=== PATIENT | female | born 1975 | race Caucasian/White ===

== ENCOUNTER 2022-03-02 20:40 | Emergency (ER) | payer OTHER, MEDICAID ==
[~2022-03-02] VITALS: Ht 165.1 cm; Wt 104.3 kg
[2022-03-02 21:15] LABS: Basophils # (auto) 0.1 10 ^3/uL (0-0.2); Eosinophils # (auto) 0.1 10 ^3/uL (0-0.8); Lymphocytes # (auto) 1.2 10 ^3/uL (0.4-5.4); Neutrophils # (auto) 4.7 10 ^3/uL (1.6-8.6); Neutrophils % (auto) 70.7 % (37.0-80.0); Nucleated Red Blood Cells % 0.1 %; White Blood Cell 6.7 10^3/uL (4.4-10.8)
[2022-03-02 21:16] LABS: Basophils % (auto) 1.2 % (0.0-2.0); Hematocrit 41.1 % (36.0-46.0); Hemoglobin 14.1 g/dL (12.2-16.2); Lymphocytes % (auto) 17.9 % (10.0-50.0); Mean Corpuscular Hemoglobin 37.8 pg (28.0-32.0); Mean Corpuscular Hgb Conc. 34.2 g/dL (32.0-36.0); Mean Corpuscular Volume 110.4 fL (80.0-100.0); Monocytes # (auto) 0.5 10 ^3/uL (0-1.3); Monocytes % (auto) 8.2 % (0.0-12.0); Red Blood Cells 3.72 10^6/uL (4.0-5.20); Red Cell Distribution Width 14.2 % (11.8-14.3)
[2022-03-02 21:40] LABS: Albumin 3.1 g/dL (3.4-5.0); BUN/Creatinine Ratio 7.6; Calcium 9.1 mg/dL (8.5-10.1); Potassium 3.4 mmol/L (3.5-5.1)
[2022-03-02 21:42] LABS: Bilirubin, Total 0.8 mg/dL (0.2-1.0); Total Protein 7.4 g/dL (6.4-8.2)
[2022-03-03 03:03] LABS: Urine Bacteria NONE SEEN /hpf (None Seen); Urine Blood Negative /uL (Negative); Urine Budding Yeast OCCASIONAL /hpf (None Seen); Urine Mucus MODERATE (None Seen); Urine Specific Gravity 1.016 (1.001-1.035); Urine WBC 57 /hpf (0 - 5)
[2022-03-03 06:00] VITALS: BP 110/75
[2022-03-03] MEDS ORDERED: NITR-87 PO (07:33)
[2022-03-03] MEDS ORDERED: POTASSIUM EFFERVESENT TAB 25 MEQ PO ONE (07:45)
[2022-03-03] MEDS ORDERED: cefTRIAXone W LIDOCAINE 1 GM IM IM ONE (07:45)
[2022-03-03] MEDS ORDERED: HYDROcodone-ACET 10/325MG TAB PO ONE (07:45)
[2022-03-03] MEDS ORDERED: ONDANSETRON ODT 4 MG TAB PO ONE (10:00)
== END 2022-03-03 10:13 | disposition home or self-care (01) ==
LOC: EDBD 20:40 → ER 20:40
DX: E87.6 Hypokalemia (principal); E44.1 Mild protein-calorie malnutrition; N39.0 Urinary tract infection, site not specified; R74.8 Abnormal levels of other serum enzymes; F17.210 Nicotine dependence, cigarettes, uncomplicated; Z68.38 Body mass index [BMI] 38.0-38.9, adult; Z90.49 Acquired absence of other specified parts of digestive tract; Z88.6 Allergy status to analgesic agent
CPT/HCPCS: 36415; 74176; 80053; 81001; 83690; 85025; 93005; 96372; 99285; J0696; Q0162

== ENCOUNTER 2022-03-07 11:23 | Inpatient (IN) | payer OTHER, MEDICAID ==
[~2022-03-07] VITALS: Ht 167.6 cm; Wt 102.3 kg
[~2022-03-07 11:23] MED LIST: NITR-87 PO
[2022-03-07] MEDS ORDERED: cefTRIAXone 1GM/50ML D5W 50 ML IV ONE (11:30)
[2022-03-07] MEDS ORDERED: SODIUM CHLORIDE 0.9% 1,000 ML IV ONE (11:30)
[2022-03-07 12:21] LABS: Eosinophils # (auto) 0.1 10 ^3/uL (0-0.8); Eosinophils % (auto) 0.6 % (0.0-7.0); Monocytes # (auto) 0.9 10 ^3/uL (0-1.3); Red Blood Cells 3.86 10^6/uL (4.0-5.20)
[2022-03-07 12:22] LABS: Basophils # (auto) 0.1 10 ^3/uL (0-0.2); Basophils % (auto) 0.6 % (0.0-2.0); Hematocrit 42.3 % (36.0-46.0); Hemoglobin 14.6 g/dL (12.2-16.2); Lymphocytes % (auto) 9.3 % (10.0-50.0); Mean Corpuscular Hemoglobin 37.8 pg (28.0-32.0); Mean Corpuscular Hgb Conc. 34.6 g/dL (32.0-36.0); Mean Corpuscular Volume 109.4 fL (80.0-100.0); Neutrophils # (auto) 8.5 10 ^3/uL (1.6-8.6); Neutrophils % (auto) 80.5 % (37.0-80.0); Nucleated Red Blood Cells % 0.1 %; Red Cell Distribution Width 13.9 % (11.8-14.3); White Blood Cell 10.5 10^3/uL (4.4-10.8)
[2022-03-07 12:28] LABS: Albumin 3.3 g/dL (3.4-5.0); Calcium 9.1 mg/dL (8.5-10.1); Potassium 3.5 mmol/L (3.5-5.1)
[2022-03-07 12:37] LABS: Bilirubin, Total 1.2 mg/dL (0.2-1.0); INR 1.04 (0.9-1.15); Partial Thromboplastin Time 26.9 sec (23.6-33.0); Total Protein 7.8 g/dL (6.4-8.2)
[2022-03-07] MEDS ORDERED: LORazepam 2MG/ML-1ML VIAL ONE (15:27)
[2022-03-07] MEDS ORDERED: MORPHINE SULFATE INJECTION 2 MG/ML SYRG IV PRN (15:45)
[2022-03-07] MEDS ORDERED: NITROGLYCERIN 0.4 MG SL TAB SL PRN (15:45)
[2022-03-07] MEDS ORDERED: LORazepam 2MG/ML-1ML VIAL IM ONE (15:45)
[2022-03-07 16:27] LABS: Urine Bacteria FEW /hpf (None Seen); Urine Blood Negative /uL (Negative); Urine Hyaline Cast FEW /lpf (0 - 2); Urine Mucus MANY (None Seen); Urine WBC 1 /hpf (0 - 5)
[2022-03-07 16:42] LABS: Alcohol, Urine < 3.0 mg/dL (0-10); Amphetamine Screen, Urine NEGATIVE (NEGATIVE); Barbiturate Scree,Urine NEGATIVE (NEGATIVE); Benzodiazephine Screen, Urine POSITIVE (NEGATIVE); Cannabinoid Screen, Urine NEGATIVE (NEGATIVE); Cocaine Screen, Urine NEGATIVE (NEGATIVE); Opiate Scree,Urine NEGATIVE (NEGATIVE); Phencyclidine Screen, Urine NEGATIVE (NEGATIVE)
[2022-03-07] MEDS ORDERED: ONDANSETRON HCL 4 MG/2 ML VIAL IV PRN (16:45)
[2022-03-07] MEDS ORDERED: CLINDAMYCIN 600MG IV 50 ML IV ONE (16:45)
[2022-03-07] MEDS ORDERED: MULTIPLE VITAMINS W/ MINERALS TAB PO ONE (16:45)
[2022-03-07] MEDS ORDERED: hydrALAZINE HCL 20 MG/ML VL IV PRN (16:45)
[2022-03-07] MEDS ORDERED: LACTULOSE 20Gm/30ML SOLN PO PRN (16:45)
[2022-03-07] MEDS ORDERED: THIAMINE 100mg/ml INJ (200mg/2ml VIAL) IV ONE (16:45)
[2022-03-07] MEDS ORDERED: PANTOPRAZOLE 40 MG/10 ML VIAL INJ IV ONE (16:45)
[2022-03-07] MEDS ORDERED: FOLIC ACID 1 MG TAB PO ONE (16:45)
[2022-03-07] MEDS: SODIUM CHLORIDE 0.9% 1,000 ML IV SCH (17:25)
[2022-03-07 18:52] LABS: INR 1.04 (0.9-1.15); Partial Thromboplastin Time 25.6 sec (23.6-33.0)
[2022-03-07 19:45] VITALS: BP 146/56
[2022-03-07 22:00] VITALS: BP 128/78
[2022-03-07] MEDS: ATORVASTATIN 20 MG TAB PO SCH (22:00)
[2022-03-07 23:32] LABS: Phosphorus 3.7 mg/dL (2.5-4.90)
[2022-03-08] MEDS: LORazepam 2MG/ML-1ML VIAL IV PRN ×2 (00:14→21:02)
[2022-03-08 05:00] VITALS: BP 103/73
[2022-03-08] MEDS: CLINDAMYCIN 600MG IV 50 ML IV SCH ×3 (05:26→23:34)
[2022-03-08 06:18] LABS: Basophils # (auto) 0 10 ^3/uL (0-0.2); Basophils % (auto) 0.6 % (0.0-2.0); Eosinophils # (auto) 0.2 10 ^3/uL (0-0.8); Hematocrit 37.3 % (36.0-46.0); Hemoglobin 12.9 g/dL (12.2-16.2); Lymphocytes # (auto) 1.5 10 ^3/uL (0.4-5.4); Lymphocytes % (auto) 20.4 % (10.0-50.0); Mean Corpuscular Hemoglobin 38.4 pg (28.0-32.0); Mean Corpuscular Hgb Conc. 34.6 g/dL (32.0-36.0); Mean Corpuscular Volume 111.1 fL (80.0-100.0); Monocytes # (auto) 0.7 10 ^3/uL (0-1.3); Monocytes % (auto) 9.9 % (0.0-12.0); Neutrophils # (auto) 4.8 10 ^3/uL (1.6-8.6); Neutrophils % (auto) 66.1 % (37.0-80.0); Nucleated Red Blood Cells % 0.1 %; Red Blood Cells 3.36 10^6/uL (4.0-5.20); Red Cell Distribution Width 13.8 % (11.8-14.3); White Blood Cell 7.3 10^3/uL (4.4-10.8)
[2022-03-08 06:22] LABS: Albumin 2.8 g/dL (3.4-5.0); Calcium 8.7 mg/dL (8.5-10.1); Potassium 3.2 mmol/L (3.5-5.1); Uric Acid 6.8 mg/dL (2.6-6.0)
[2022-03-08 06:28] LABS: INR 1.04 (0.9-1.15); Partial Thromboplastin Time 26.8 sec (23.6-33.0)
[2022-03-08 06:34] LABS: BUN/Creatinine Ratio 15.7; Bilirubin, Total 0.9 mg/dL (0.2-1.0); CRP High Sensitivity 1.1 mg/dL (< 0.3); Phosphorus 3.9 mg/dL (2.5-4.90); Total Protein 6.6 g/dL (6.4-8.2)
[2022-03-08 08:00] VITALS: BP 110/66
[2022-03-08] MEDS ORDERED: cefTRIAXone 1GM/50ML D5W 50 ML IV SCH (09:00)
[2022-03-08] MEDS: SODIUM CHLORIDE 0.9% 1,000 ML IV SCH (09:19)
[2022-03-08] MEDS: PANTOPRAZOLE 40 MG/10 ML VIAL INJ IV SCH (09:19)
[2022-03-08] MEDS: FOLIC ACID 1 MG TAB PO SCH (09:20)
[2022-03-08] MEDS: MULTIPLE VITAMINS W/ MINERALS TAB PO SCH (09:20)
[2022-03-08] MEDS: ASPirin 81 mg TAB PO SCH (09:20)
[2022-03-08] MEDS: THIAMINE HCL 100 MG TAB PO SCH (09:21)
[2022-03-08] MEDS ORDERED: CHOLECALCIFEROL (VITD3) 2,000 UNIT CAP/TAB PO SCH (10:00)
[2022-03-08] MEDS ORDERED: POTASSIUM EFFERVESENT TAB 25 MEQ PO ONE (10:30)
[2022-03-08] MEDS ORDERED: CYANOCOBALAMIN 500 MCG TAB PO ONE (10:30)
[2022-03-08 10:46] LABS: Salicylate < 1.7 mg/dL (2.8-20.0)
[2022-03-08 11:08] LABS: Acetaminophen < 2.0 ug/mL (10-30)
[2022-03-08 12:00] VITALS: BP 134/72
[2022-03-08 16:00] VITALS: BP 126/84
[2022-03-08] MEDS ORDERED: ERGOCALCIFEROL 50,000 UNIT(1.25MG) CAP PO SCH (16:00)
[2022-03-08] MEDS: ATORVASTATIN 20 MG TAB PO SCH (21:02)
[2022-03-08] MEDS: cefTRIAXone 1GM/50ML D5W 50 ML IV SCH (21:04)
[2022-03-08 22:00] VITALS: BP 133/79
[2022-03-09] MEDS: SODIUM CHLORIDE 0.9% 1,000 ML IV SCH ×3 (02:48→20:35)
[2022-03-09 05:05] VITALS: BP 129/74
[2022-03-09 05:51] LABS: Basophils # (auto) 0 10 ^3/uL (0-0.2); Basophils % (auto) 0.7 % (0.0-2.0); Eosinophils # (auto) 0.3 10 ^3/uL (0-0.8); Eosinophils % (auto) 4.6 % (0.0-7.0); Hematocrit 34.8 % (36.0-46.0); Hemoglobin 12.2 g/dL (12.2-16.2); Lymphocytes # (auto) 1.2 10 ^3/uL (0.4-5.4); Lymphocytes % (auto) 17.6 % (10.0-50.0); Mean Corpuscular Hemoglobin 38.2 pg (28.0-32.0); Mean Corpuscular Volume 109.1 fL (80.0-100.0); Monocytes # (auto) 0.7 10 ^3/uL (0-1.3); Monocytes % (auto) 10.9 % (0.0-12.0); Neutrophils # (auto) 4.4 10 ^3/uL (1.6-8.6); Neutrophils % (auto) 66.2 % (37.0-80.0); Nucleated Red Blood Cells % 0.2 %; Red Blood Cells 3.19 10^6/uL (4.0-5.20); Red Cell Distribution Width 13.9 % (11.8-14.3); White Blood Cell 6.6 10^3/uL (4.4-10.8)
[2022-03-09 06:16] LABS: Potassium 3.7 mmol/L (3.5-5.1)
[2022-03-09 06:34] LABS: Albumin 2.8 g/dL (3.4-5.0); Bilirubin, Total 0.7 mg/dL (0.2-1.0); Calcium 8.9 mg/dL (8.5-10.1); Total Protein 6.3 g/dL (6.4-8.2)
[2022-03-09 09:00] VITALS: BP 125/80
[2022-03-09] MEDS: PANTOPRAZOLE 40 MG/10 ML VIAL INJ IV SCH (09:21)
[2022-03-09] MEDS: ASPirin 81 mg TAB PO SCH (09:22)
[2022-03-09] MEDS: THIAMINE HCL 100 MG TAB PO SCH (09:22)
[2022-03-09] MEDS: MULTIPLE VITAMINS W/ MINERALS TAB PO SCH (09:23)
[2022-03-09] MEDS: CYANOCOBALAMIN 500 MCG TAB PO SCH (09:24)
[2022-03-09] MEDS: FOLIC ACID 1 MG TAB PO SCH (09:24)
[2022-03-09] MEDS: cefTRIAXone 1GM/50ML D5W 50 ML IV SCH ×4 (09:25→21:27)
[2022-03-09] MEDS: LORazepam 2MG/ML-1ML VIAL IV PRN ×2 (12:58→23:18)
[2022-03-09 13:00] VITALS: BP 132/70
[2022-03-09] MEDS: CLINDAMYCIN 600MG IV 50 ML IV SCH ×2 (17:28→20:35)
[2022-03-09 17:48] VITALS: BP 118/68
[2022-03-09] MEDS: HYDROcodone-ACET 5/325MG TAB PO PRN (20:36)
[2022-03-09 21:11] VITALS: BP 117/76
[2022-03-09] MEDS: ATORVASTATIN 20 MG TAB PO SCH (21:28)
[2022-03-09] MEDS: DOCUSATE SOD 100 MG CAP PO PRN (21:28)
[2022-03-10] MEDS: CLINDAMYCIN 600MG IV 50 ML IV SCH ×3 (03:43→21:06)
[2022-03-10] MEDS: HYDROcodone-ACET 5/325MG TAB PO PRN ×2 (04:40→22:38)
[2022-03-10 05:50] VITALS: BP 122/91
[2022-03-10 06:12] LABS: Albumin 2.8 g/dL (3.4-5.0); BUN/Creatinine Ratio 5.1; Calcium 8.7 mg/dL (8.5-10.1); Potassium 3.8 mmol/L (3.5-5.1)
[2022-03-10 06:14] LABS: Bilirubin, Total 0.6 mg/dL (0.2-1.0); Total Protein 6.5 g/dL (6.4-8.2)
[2022-03-10 08:37] VITALS: BP 132/79
[2022-03-10] MEDS: PANTOPRAZOLE 40 MG/10 ML VIAL INJ IV SCH (09:04)
[2022-03-10] MEDS: cefTRIAXone 1GM/50ML D5W 50 ML IV SCH ×2 (09:05→22:38)
[2022-03-10] MEDS: ASPirin 81 mg TAB PO SCH (09:06)
[2022-03-10] MEDS: THIAMINE HCL 100 MG TAB PO SCH (09:07)
[2022-03-10] MEDS: FOLIC ACID 1 MG TAB PO SCH (09:07)
[2022-03-10] MEDS: CYANOCOBALAMIN 500 MCG TAB PO SCH (09:08)
[2022-03-10] MEDS: MULTIPLE VITAMINS W/ MINERALS TAB PO SCH (09:08)
[2022-03-10 13:00] VITALS: BP 131/85
[2022-03-10 16:50] VITALS: BP 113/79
[2022-03-10] MEDS: ATORVASTATIN 20 MG TAB PO SCH (21:17)
[2022-03-10 22:00] VITALS: BP 123/76
[2022-03-11] MEDS: SODIUM CHLORIDE 0.9% 1,000 ML IV SCH ×2 (04:55→23:16)
[2022-03-11] MEDS: CLINDAMYCIN 600MG IV 50 ML IV SCH ×2 (04:55→12:13)
[2022-03-11 05:00] VITALS: BP 117/77
[2022-03-11 08:15] VITALS: BP 131/80
[2022-03-11] MEDS: cefTRIAXone 1GM/50ML D5W 50 ML IV SCH (10:00)
[2022-03-11] MEDS: PANTOPRAZOLE 40 MG/10 ML VIAL INJ IV SCH (12:11)
[2022-03-11] MEDS: ASPirin 81 mg TAB PO SCH (12:12)
[2022-03-11] MEDS: CYANOCOBALAMIN 500 MCG TAB PO SCH (12:12)
[2022-03-11] MEDS: THIAMINE HCL 100 MG TAB PO SCH (12:12)
[2022-03-11] MEDS: MULTIPLE VITAMINS W/ MINERALS TAB PO SCH (12:12)
[2022-03-11] MEDS: FOLIC ACID 1 MG TAB PO SCH (12:13)
[2022-03-11 13:00] VITALS: BP 118/61
[2022-03-11 13:08] LABS: Hepatitis A Ab IgM Negative
[2022-03-11 13:09] LABS: Hepatitis B Core IgM Negative
[2022-03-11 13:10] LABS: Hepatitis C Antibody Negative (Negative)
[2022-03-11] MEDS: HYDROcodone-ACET 5/325MG TAB PO PRN (13:30)
[2022-03-11 15:21] LABS: Folate (Folic Acid) > 24.00 ng/mL (5.38-24)
[2022-03-11 16:55] VITALS: BP 118/65
[2022-03-11 21:50] VITALS: BP 148/92
[2022-03-11] MEDS: risperiDONE 1 MG TAB PO SCH ×2 (22:00→22:53)
[2022-03-11] MEDS: ATORVASTATIN 20 MG TAB PO SCH ×2 (22:00→22:53)
[2022-03-12] MEDS: HYDROcodone-ACET 5/325MG TAB PO PRN (02:04)
[2022-03-12 05:00] VITALS: BP 136/74
[2022-03-12 06:05] LABS: Bilirubin, Direct 0.4 mg/dL (0-0.2); Bilirubin, Total 0.8 mg/dL (0.2-1.0)
[2022-03-12 09:12] VITALS: BP 128/69
[2022-03-12] MEDS: PANTOPRAZOLE 40 MG/10 ML VIAL INJ IV SCH (09:28)
[2022-03-12] MEDS: ASPirin 81 mg TAB PO SCH (09:28)
[2022-03-12] MEDS: FOLIC ACID 1 MG TAB PO SCH (09:29)
[2022-03-12] MEDS: THIAMINE HCL 100 MG TAB PO SCH (09:30)
[2022-03-12] MEDS: MULTIPLE VITAMINS W/ MINERALS TAB PO SCH (09:31)
[2022-03-12] MEDS: risperiDONE 1 MG TAB PO SCH ×2 (09:31→21:45)
[2022-03-12] MEDS: CYANOCOBALAMIN 500 MCG TAB PO SCH (09:32)
[2022-03-12 13:03] VITALS: BP 145/91
[2022-03-12 17:00] VITALS: BP 133/87
[2022-03-12] MEDS: SODIUM CHLORIDE 0.9% 1,000 ML IV SCH (17:50)
[2022-03-12] MEDS: ATORVASTATIN 20 MG TAB PO SCH (21:45)
[2022-03-12 22:00] VITALS: BP 128/83
[2022-03-12] MEDS: LORazepam 2MG/ML-1ML VIAL IV PRN (23:17)
[2022-03-13 05:00] VITALS: BP 115/78
[2022-03-13] MEDS: SODIUM CHLORIDE 0.9% 1,000 ML IV SCH (06:27)
[2022-03-13 08:56] VITALS: BP 114/79
[2022-03-13] MEDS: PANTOPRAZOLE 40 MG/10 ML VIAL INJ IV SCH (09:52)
[2022-03-13] MEDS: risperiDONE 1 MG TAB PO SCH ×2 (09:53→22:14)
[2022-03-13] MEDS: ASPirin 81 mg TAB PO SCH (09:53)
[2022-03-13] MEDS: THIAMINE HCL 100 MG TAB PO SCH (09:53)
[2022-03-13] MEDS: MULTIPLE VITAMINS W/ MINERALS TAB PO SCH (09:53)
[2022-03-13] MEDS: FOLIC ACID 1 MG TAB PO SCH (09:53)
[2022-03-13] MEDS: CYANOCOBALAMIN 500 MCG TAB PO SCH (09:54)
[2022-03-13 13:00] VITALS: BP 114/73
[2022-03-13 17:00] VITALS: BP 131/81
[2022-03-13 21:40] VITALS: BP 140/89
[2022-03-13] MEDS: ATORVASTATIN 20 MG TAB PO SCH (22:13)
[2022-03-13] MEDS: LORazepam 2MG/ML-1ML VIAL IV PRN (23:17)
[2022-03-14 04:32] VITALS: BP 135/80
[2022-03-14 05:49] LABS: % Iron Saturation 61.1 % (15-50)
[2022-03-14 08:00] VITALS: BP 122/75
[2022-03-14] MEDS: PANTOPRAZOLE 40 MG/10 ML VIAL INJ IV SCH (09:35)
[2022-03-14] MEDS: MULTIPLE VITAMINS W/ MINERALS TAB PO SCH (09:36)
[2022-03-14] MEDS: risperiDONE 1 MG TAB PO SCH ×2 (09:36→22:55)
[2022-03-14] MEDS: THIAMINE HCL 100 MG TAB PO SCH (09:36)
[2022-03-14] MEDS: ASPirin 81 mg TAB PO SCH (09:36)
[2022-03-14] MEDS ORDERED: LORazepam 0.5 MG TAB PO SCH (10:00)
[2022-03-14 12:00] VITALS: BP 109/71
[2022-03-14] MEDS: LORazepam 0.5 MG TAB PO SCH ×2 (13:47→21:44)
[2022-03-14 14:25] LABS: Urine Bacteria NONE SEEN /hpf (None Seen); Urine Blood 2+ /uL (Negative); Urine Hyaline Cast FEW /lpf (0 - 2); Urine Mucus FEW (None Seen); Urine Specific Gravity 1.012 (1.001-1.035); Urine WBC 1 /hpf (0 - 5)
[2022-03-14 14:50] LABS: Protein, Urine 12.4 mg/dL (0.0-11.9)
[2022-03-14 16:00] VITALS: BP 131/85
[2022-03-14 21:44] VITALS: BP 135/80
[2022-03-14] MEDS: ATORVASTATIN 20 MG TAB PO SCH (21:44)
[2022-03-15 05:00] VITALS: BP 129/68
[2022-03-15] MEDS: DOCUSATE SOD 100 MG CAP PO PRN (05:16)
[2022-03-15 09:00] VITALS: BP 130/103
[2022-03-15] MEDS: MULTIPLE VITAMINS W/ MINERALS TAB PO SCH (10:06)
[2022-03-15] MEDS: LORazepam 0.5 MG TAB PO SCH (10:06)
[2022-03-15] MEDS: ASPirin 81 mg TAB PO SCH (10:06)
[2022-03-15] MEDS: risperiDONE 1 MG TAB PO SCH (10:06)
[2022-03-15] MEDS: THIAMINE HCL 100 MG TAB PO SCH (10:06)
[2022-03-15] MEDS: PANTOPRAZOLE 40 MG/10 ML VIAL INJ IV SCH (10:07)
[2022-03-15] MEDS ORDERED: RIS1T PO (11:18)
[2022-03-15] MEDS ORDERED: THIA100T5 PO (11:18)
[2022-03-15] MEDS ORDERED: ERGO1CAP23 PO (11:18)
[2022-03-15] MEDS ORDERED: MULT-1018 PO (11:41)
[2022-03-15 11:55] LABS: Eosinophils # (auto) 0.2 10 ^3/uL (0-0.8); Monocytes # (auto) 0.6 10 ^3/uL (0-1.3); White Blood Cell 5.2 10^3/uL (4.4-10.8)
[2022-03-15 11:56] LABS: Basophils # (auto) 0.1 10 ^3/uL (0-0.2); Eosinophils % (auto) 3.8 % (0.0-7.0); Hematocrit 37.3 % (36.0-46.0); Lymphocytes # (auto) 0.9 10 ^3/uL (0.4-5.4); Lymphocytes % (auto) 17.6 % (10.0-50.0); Mean Corpuscular Hemoglobin 38.2 pg (28.0-32.0); Mean Corpuscular Hgb Conc. 34.9 g/dL (32.0-36.0); Mean Corpuscular Volume 109.4 fL (80.0-100.0); Monocytes % (auto) 11.1 % (0.0-12.0); Neutrophils # (auto) 3.5 10 ^3/uL (1.6-8.6); Neutrophils % (auto) 66.5 % (37.0-80.0); Red Blood Cells 3.41 10^6/uL (4.0-5.20); Red Cell Distribution Width 13.5 % (11.8-14.3)
[2022-03-15 12:14] LABS: Albumin 3.1 g/dL (3.4-5.0); Calcium 9.2 mg/dL (8.5-10.1); Potassium 3.5 mmol/L (3.5-5.1)
[2022-03-15 12:16] LABS: Bilirubin, Total 0.8 mg/dL (0.2-1.0); Total Protein 6.9 g/dL (6.4-8.2)
== END 2022-03-15 15:00 | disposition home or self-care (01) | DRG 92 ==
LOC: EDBD 11:23 → ER 11:23 → OVERFLOW 15:36 → WEST WING 19:24
PROVIDERS: ADMIT Hospitalist; ATTEND Internal Medicine Nephrology
DX: G92.8 Other toxic encephalopathy (principal); E44.1 Mild protein-calorie malnutrition; K70.10 Alcoholic hepatitis without ascites; M54.9 Dorsalgia, unspecified; E66.01 Morbid (severe) obesity due to excess calories; E78.5 Hyperlipidemia, unspecified; E88.09 Other disorders of plasma-protein metabolism, not elsewhere classified; F17.210 Nicotine dependence, cigarettes, uncomplicated; K29.20 Alcoholic gastritis without bleeding; K70.30 Alcoholic cirrhosis of liver without ascites; K76.0 Fatty (change of) liver, not elsewhere classified; N73.9 Female pelvic inflammatory disease, unspecified; R62.7 Adult failure to thrive; D75.89 Other specified diseases of blood and blood-forming organs; F19.10 Other psychoactive substance abuse, uncomplicated; E55.9 Vitamin D deficiency, unspecified; K58.9 Irritable bowel syndrome, unspecified; M54.50 Low back pain, unspecified; Z20.822 Contact with and (suspected) exposure to COVID-19; F10.10 Alcohol abuse, uncomplicated; G89.29 Other chronic pain; I48.0 Paroxysmal atrial fibrillation; Z68.36 Body mass index [BMI] 36.0-36.9, adult; Z82.49 Family history of ischemic heart disease and other diseases of the circulatory system; Z79.899 Other long term (current) drug therapy; Z88.5 Allergy status to narcotic agent; Z90.49 Acquired absence of other specified parts of digestive tract; Z56.0 Unemployment, unspecified
CPT/HCPCS: 36415; 70450; 70551; 71045; 74176; 76705; 76856; 80053; 80061; 80074; 80076; 80307; 80329; 81001; 81025; 82140; 82306; 82390; 82550; 82570; 82607; 82728; 82746; 83540; 83550; 83615; 83690; 83735; 83880; 84100; 84156; 84300; 84443; 84484; 84550; 84702; 85025; 85379; 85610; 85652; 85730; 86038; 86141; 86703; 87040; 87086; 93005; 93970; 95819; 96365; 96372; 96375; 97110; 97116; 97163; 97530; C9113; G0378; J0696; J3490